=== PATIENT | female | born 1970 | race Hispanic/Latino ===

== ENCOUNTER → 2025-01-02 | Day surgery (SDC) | payer OTHER ==
[~2025-01-02] MED LIST: ATORVASTATIN CA10 MG PO; HYOSCYAMINE SULFATE 0.5 MG/ML INJ ONE; LIDOCAINE HCL 2% LOCAL INJ 5 ML SDV VIAL INJ ONE; PROPOFOL IV EMULSION 10 MG/ML 20 ML VIAL ONE; VITAMIN D250 MC1 PO
[2025-01-02] MEDS: LACTATED RINGER'S 1,000 ML ONE (13:38)
[2025-01-02 15:50] VITALS: BP 127/70; PULSE 71; RESP 16; O2SAT 98
== END | disposition home or self-care (01) ==
LOC: OR 13:30
PROVIDERS: ATTEND Internal Medicine Gastroenterology
DX: Z12.11 Encounter for screening for malignant neoplasm of colon (principal); D12.8 Benign neoplasm of rectum; K64.8 Other hemorrhoids; K76.9 Liver disease, unspecified; I10 Essential (primary) hypertension; E78.5 Hyperlipidemia, unspecified; E66.9 Obesity, unspecified; N20.0 Calculus of kidney; Z71.89 Other specified counseling; Z79.899 Other long term (current) drug therapy; Z68.36 Body mass index [BMI] 36.0-36.9, adult; Z71.3 Dietary counseling and surveillance
CPT/HCPCS: 45385; 93005; J1980; J2003